=== PATIENT | female | born 1960 | race Caucasian/White ===

== ENCOUNTER → 2016-12-29 | Outpatient (CLI) | payer MEDICARE ==
[~2016-12-29] MED LIST: GADOBUTROL 10 MMOL/10 ML VIAL ONE
== END | disposition home or self-care (01) ==
LOC: RAD 09:18
PROVIDERS: ATTEND Neurological Surgery
DX: D49.7 Neoplasm of unspecified behavior of endocrine glands and other parts of nervous system (principal); R93.0 Abnormal findings on diagnostic imaging of skull and head, not elsewhere classified
CPT/HCPCS: 70553; A9585

== ENCOUNTER 2017-05-19 11:51 | Day surgery (SDC) | payer MEDICARE ==
[~2017-05-19] VITALS: Ht 172.7 cm; Wt 117.0 kg
[2017-05-19] MEDS ORDERED: LACTATED RINGERS 1,000 ML IV SCH (12:34)
[2017-05-19] MEDS ORDERED: IBUP-1223 PO (12:37)
[2017-05-19] MEDS ORDERED: LORA1TAB PO (12:37)
[2017-05-19] MEDS ORDERED: GABA300C10 PO (12:37)
[2017-05-19] MEDS ORDERED: OXYC-307 PO (12:37)
[2017-05-19] MEDS ORDERED: SIMV20TA3 PO (12:37)
[2017-05-19] MEDS ORDERED: FURO-93 PO (12:37)
[2017-05-19] MEDS ORDERED: PROM25SU34 RC (12:37)
[2017-05-19] MEDS ORDERED: LISI-170 PO (12:37)
[2017-05-19] MEDS ORDERED: TIZA4CAP2 PO (12:37)
[2017-05-19] MEDS ORDERED: PANT20TA3 PO (12:37)
[2017-05-19] MEDS ORDERED: CELE200C PO (12:38)
[2017-05-19 12:43] VITALS: BP 134/85
[2017-05-19] MEDS ORDERED: LIDOCAINE 1%, 2ML SQ PRN (13:00)
[2017-05-19] MEDS ORDERED: PLEASE ENTER HEIGHT AND WEIGHT MC SCH (13:00)
[2017-05-19] MEDS ORDERED: MIDAZOLAM 1 MG/ML, 5ML ONE (13:14)
[2017-05-19] MEDS ORDERED: KETAMINE 10 MG/ML, 20ML ONE (13:15)
[2017-05-19] MEDS ORDERED: FENTANYL PF 100 MCG/2ML ONE ×2 (13:16→14:34)
[2017-05-19] MEDS ORDERED: GLYCOPYRROLATE 0.2MG/1ML, 5ML ONE (13:17)
[2017-05-19] MEDS ORDERED: morphine SULFATE 10 MG/ML, 1ML IV PRN (13:30)
[2017-05-19] MEDS ORDERED: MIDAZOLAM 1 MG/ML, 2ML IV PRN (13:30)
[2017-05-19] MEDS ORDERED: OXYcodone 5 MG/5 ML ORAL.SOL UDC PO PRN (13:30)
[2017-05-19] MEDS ORDERED: ACETAMINOPHEN 325 MG TABLET PO PRN (13:30)
[2017-05-19] MEDS ORDERED: PROMETHAZINE 25 MG/ML, 1ML IV PRN (13:30)
[2017-05-19] MEDS ORDERED: MEPERIDINE/PF 25MG/0.5ML IVPush PRN (13:30)
[2017-05-19] MEDS ORDERED: HYDROcodone/APAP 7.5-325MG/15ML UDC PO PRN (13:30)
[2017-05-19] MEDS: FENTANYL PF 100 MCG/2ML IV PRN ×2 (14:35→14:40)
[2017-05-19] MEDS ORDERED: ACETAMINOPHEN 650 MG/20.3 ML UDC ONE (14:41)
[2017-05-19] MEDS ORDERED: OXYcodone 5 MG/5 ML ORAL.SOL UDC ONE (14:42)
[2017-05-19] MEDS ORDERED: LABETALOL 5MG/ML, 20ML ONE (14:47)
[2017-05-19] MEDS ORDERED: LABETALOL 5MG/ML, 20ML IV PRN (15:00)
== END 2017-05-19 16:10 ==
LOC: OUT 11:51
PROVIDERS: ATTEND Internal Medicine
DX: K63.5 Polyp of colon (principal); K21.9 Gastro-esophageal reflux disease without esophagitis; K31.89 Other diseases of stomach and duodenum; Z80.0 Family history of malignant neoplasm of digestive organs; E78.5 Hyperlipidemia, unspecified; F41.9 Anxiety disorder, unspecified; G47.33 Obstructive sleep apnea (adult) (pediatric); G43.909 Migraine, unspecified, not intractable, without status migrainosus; Z98.890 Other specified postprocedural states; Z90.710 Acquired absence of both cervix and uterus; Z87.891 Personal history of nicotine dependence
CPT/HCPCS: 43239; 45380; 88305; J2250; J3010; J7120; J3490